=== PATIENT | male | born 1940 | race Two or more races ===

== ENCOUNTER 2018-08-21 10:07 | Inpatient (IN) | payer OTHER, MEDICAID ==
[2018-08-21] VITALS (12 sets, daily range): BP systolic 87–153; BP diastolic 44–104
[~2018-08-21] VITALS: Ht 167.6 cm; Wt 109.8 kg
--- NOTE | 2018-08-21 10:30 | NUR ---
PT BIB FAMILY FOR INCREASING SOB AND CONFUSION FOR PAST 2 WEEKS. NOTED SATING AT 60-70% RA. AT BS FOR EVAL. OTHER VSS. IV ACCESS STARTED. BLOOD DRAWN FOR LABS. SAFETY AND COMFORT MEASURES PROVIDED. WILL MONITOR.
[2018-08-21 10:44] LABS: BASOPHILS # (AUTO) 0.1 /CMM (0.0-0.2); BASOPHILS % (AUTO) 1.8 % (0.0-2.0); EOSINOPHILS % (AUTO) 0.5 % (0.0-6.0); HEMATOCRIT 53 % (39-51); LYMPHOCYTES # (AUTO) 1.1 /CMM (0.8-4.8); LYMPHOCYTES % (AUTO) 16.5 % (20.0-44.0); MEAN CORPUSCULAR HGB CONC 32 g/dl (31.0-36.0); MEAN CORPUSCULAR VOLUME 92 fL (80-96); MONOCYTES # (AUTO) 0.5 /CMM (0.1-1.30); MONOCYTES % (AUTO) 7.8 % (2.0-12.0); NEUTROPHILS # (AUTO) 5.2 /CMM (1.8-8.9); NEUTROPHILS % (AUTO) 73.4 % (43.0-81.0); PLATELET COUNT (AUTO) 136 /CMM (150-450); RDW COEFFICIENT OF VARIATION 13.2 (11.5-15.0); RED BLOOD CELL COUNT(AUTO) 5.77 MIL/uL (4.5-6.0); WHITE BLOOD COUNT (AUTO) 6.9 K/uL (4.3-11.0)
[2018-08-21] MEDS ORDERED: predniSONE 20 MG TABLET ONE (10:53)
[2018-08-21] MEDS ORDERED: IPRATROPIUM NEB FS 0.5 MG/2.5 ML AMPUL.NEB ONE (10:58)
[2018-08-21] MEDS ORDERED: ALBUTEROL FS 2.5 MG/3 ML VIAL.NEB ONE (10:58)
[2018-08-21] MEDS ORDERED: IPRATROPIUM NEB FS 0.5 MG/2.5 ML AMPUL.NEB NEB ONE (11:00)
[2018-08-21] MEDS ORDERED: predniSONE 20 MG TABLET PO ONE (11:00)
[2018-08-21] MEDS ORDERED: ALBUTEROL FS 2.5 MG/3 ML VIAL.NEB NEB ONE (11:00)
--- NOTE | 2018-08-21 11:00 | NUR ---
RT AT BS FOR BREATHING TX.
[2018-08-21 11:05] LABS: TROPONIN I 0.017 ng/mL (0.00-0.056)
[2018-08-21 11:06] LABS: B-TYPE NATRIURETIC PEPTIDE 644 PG/ML (0-125); CALCIUM, SERUM 8.4 mg/dL (8.5-10.1); CHLORIDE 98 mmol/L (98-107); GLUCOSE 201 mg/dL (74-106); SODIUM SERUM 136 mmol/L (136-145); UREA NITROGEN, BLOOD 8 mg/dL (7-18)
[2018-08-21 11:10] LABS: CARBON DIOXIDE 42 mmol/L (21-32)
--- NOTE | 2018-08-21 11:34 | NUR ---
CALLED TO ER. FOUND PT ON ROOM AIR SPO2: 70%. INITIATED HHN TX AND SPO2 WENT UP TO 99%. POST HHN TX PLACED PT ON 5L NC. PT SUSTAINED SPO2: 96%. INFORMED RN . Addendum: 08/21/18 at 1135 by RIKY CR RT Amended: Links added.
[2018-08-21] MEDS ORDERED: ACETAMINOPHEN 325 MG TABLET PO PRN (12:00)
[2018-08-21] MEDS ORDERED: ONDANSETRON HCL/PF 4 MG/2 ML VIAL IVP PRN (12:00)
[2018-08-21] MEDS ORDERED: SIMV20TA6 PO (12:08)
[2018-08-21] MEDS ORDERED: LISI10TA5 PO (12:08)
[2018-08-21] MEDS ORDERED: CHOL200026 PO (12:08)
[2018-08-21] MEDS ORDERED: ASPI-1152 PO (12:08)
[2018-08-21] MEDS ORDERED: PARO-64 PO (12:08)
--- NOTE | 2018-08-21 12:08 | NUR ---
DR. TUBBS AT BS FOR KRUNALAL.
--- NOTE | 2018-08-21 12:14 | NUR ---
REPORT GIVEN TO JOEL HOLLINS FOR TELE.
--- NOTE | 2018-08-21 13:00 | NUR ---
FRONT OFFICE MEDICAL ASSISTANT NOTES ADMITTED 78 YEAR OLD MALE, ARRIVED AT UNIT AT 1245 VIA GURNEY, REPORT RECEIVED FROM ISIS HOLLINS. PATIENT AWAKE, ALERT AND ORIENTED X4. VERBALLY RESPONSIVE AND RESPONDS TO VERBAL AND TACTILE STIMULI. BREATHING EVEN AND UNLABORED. NO SOB OR ACUTE DISTRESS, PATIENT ON OXYGEN AT 5L/MIN VIA NC. PATIENT ADMITTED UNDER MEDICAL SUPERVISION OF DR. TUBBS, AWARE OF PATIENT ARRIVAL AT UNIT. FAMILY AT BEDSIDE. PATIENT IV INTACT AND PATENT. NO SWELLING OR BLEEDING NOTED ON IV SITE. WILL CONTINUE TO MONITOR. BED LOCKED AND IN LOW POSITION. BILATERAL UPPER SIDE RAILS UP AND LOCKED. CALL LIGHT WITHIN EASY REACH
[2018-08-21] MEDS: LEVOFLOXACIN 750 MG /D5W 150ML 750 MG in PREMIX 1 EA IV SCH (13:23)
[2018-08-21] MEDS: methylPREDNISolone SOD SUCC 125 MG/2ML VIAL IV SCH ×2 (13:23→16:13)
[2018-08-21] MEDS: ALBUTEROL FS 2.5 MG/0.5 ML VIAL.NEB NEB SCH ×2 (14:24→19:44)
[2018-08-21] MEDS: IPRATROPIUM NEB FS 0.5 MG/2.5 ML AMPUL.NEB NEB SCH ×2 (14:24→19:44)
[2018-08-21 17:40] LABS: ABG OXYGEN SATURATION 88.4 % (92.0-98.5); ABG PCO2 87.3 mmHg (35.0-45.0); ABG PH 7.295 (7.350-7.450); ABG PO2 57.8 mmHg (75.0-100.0); AaDO2 68.2 mmHg; COHb 3.4 % (0.5-1.5); MetHb 0.5 % (0.0-1.5); SITE, ABG Left Radial; VENT MODE, BG Nasal Cannula
--- NOTE | 2018-08-21 18:45 | NUR ---
PRENATAL TEACHER NOTES RECEIVED ABG RESULTS AND RELAYED TO DR. TUBBS, WITH NEW ORDERS TO TRANSFER PATIENT TO ICU, TO START BIPAP AT 20/5. ORDER NOTED AND CARRIED OUT. PATIENT AND FAMILY AT BEDSIDE MADE AWARE AND VERBALIZED UNDERSTANDING. NURSING LICENSED PRACTICAL NURSE INSTRUCTOR MADE AWARE, PATIENT TO TRANSFER TO ICU ROOM 256-1. PLACED CALL TO ICU AND GAVE REPORT TO LARISA HOLLINS.
--- NOTE | 2018-08-21 19:05 | NUR ---
ICU/PROGRAM PROJECT ANALYST RECEIVED REPORT FROM CHARGE NURSE GÓMEZ, WHO HAD RECEIVED REPORT FROM 3 [place] NURSE EARLIER. PT APPEARS TO BE ALERT X4, NO SIGNS OF CONFUSION SEEN AT THIS TIME. PT WAS PLACED ON ICU MONITOR, NSR NOTED ON THE MONITOR. NO SKIN ISSUES SEEN. PT WAS PLACED ON 4 LITERS VIA N/C WITH SATURATION LOW 90'S, DUE TO HISTORY OF COPD. PT APPEARS COMFORTABLE, NO SIGNS OF DISTRESS SEEN. CALL LIGHT WITHIN REACH.
--- NOTE | 2018-08-21 19:35 | NUR ---
ICU/BRICK LOADER RT AT BEDSIDE, EVALUATED THE PT. SAID PT HAS LONG HISTORY OF COPD AND WILL WATCH HIM. AT THIS TIME THERE IS NO NEED TO PLACE PT ON BIPAP AT THIS TIME. CHARGE NURSE MADE AWARE OF THIS.
--- NOTE | 2018-08-21 20:20 | NUR ---
ICU/CELL TUBER HAND FAMILY AT BEDSIDE, EXPLAINED WHY PT WAS HERE AND PROVIDED ANY UPDATES AT WELL. GAVE FAMILY ICU NUMBER DIRECTLY.
--- NOTE | 2018-08-21 21:33 | NUR ---
PT IS AWAKE AND ALERT ON 5L NC. NO SOB. BIPAP S/B. WILL CONTINUE TO MONITOR.
--- NOTE | 2018-08-21 21:46 | NUR ---
PT PLACED ON VENTURI MASK 50%. PT SLEEPING, MOUTH BREATHNG. O2 SAT 88-90%. RN NOTIFIED. WILL CONTINUE TO MONITOR.
--- NOTE | 2018-08-21 21:56 | NUR ---
ICU/PRODUCTION EXPEDITER PT RECEIVED BREATHING TREATMENT, POST BREATHING TREATMENT PT WAS PLACED ON VENTURI MASK AT 15 LITERS WITH FIO2 50%. WILL CONTINUE TO MONITOR THIS PT.
[2018-08-22] VITALS (29 sets, daily range): BP systolic 74–141; BP diastolic 35–100
--- NOTE | 2018-08-22 00:25 | NUR ---
ICU/FIELD COORDINATOR PT APPEARS TO BE COMFORTABLE, NO ACUTE RESPIRATORY DISTRESS SEEN. CALL LIGHT WITHIN REACH. WILL CONTINUE TO MONITOR THIS PT.
[2018-08-22] MEDS: ALBUTEROL FS 2.5 MG/0.5 ML VIAL.NEB NEB SCH ×6 (00:56→23:34)
[2018-08-22] MEDS: IPRATROPIUM NEB FS 0.5 MG/2.5 ML AMPUL.NEB NEB SCH ×6 (00:56→23:34)
--- NOTE | 2018-08-22 03:10 | NUR ---
ICU/EMPLOYMENT SPECIALIST/PROGRAM MANAGER PT APPEARS COMFORTABLE WITH NO ACUTE DISTRESS SEEN. WILL CONTINUE TO MONITOR THIS PT.
[2018-08-22 04:38] LABS: LYMPHOCYTES # (AUTO) 0.4 /CMM (0.8-4.8); NEUTROPHILS # (AUTO) 7.1 /CMM (1.8-8.9); WHITE BLOOD COUNT (AUTO) 7.7 K/uL (4.3-11.0)
[2018-08-22 04:51] LABS: BASOPHILS % (AUTO) 0.1 % (0.0-2.0); HEMATOCRIT 49 % (39-51); LYMPHOCYTES % (AUTO) 5.5 % (20.0-44.0); MEAN CORPUSCULAR HGB CONC 33 g/dl (31.0-36.0); MEAN CORPUSCULAR VOLUME 94 fL (80-96); MONOCYTES # (AUTO) 0.2 /CMM (0.1-1.30); MONOCYTES % (AUTO) 2.2 % (2.0-12.0); NEUTROPHILS % (AUTO) 92.2 % (43.0-81.0); PLATELET COUNT (AUTO) 123 /CMM (150-450); RDW COEFFICIENT OF VARIATION 13.9 (11.5-15.0); RED BLOOD CELL COUNT(AUTO) 5.24 MIL/uL (4.5-6.0)
[2018-08-22 04:54] LABS: ALANINE AMINOTRANSFERASE 16 U/L (12-78); ALBUMIN 2.7 g/dL (3.4-5.0); ALKALINE PHOSPHATASE 76 U/L (46-116); ASPARTATE AMINOTRANSFERASE 10 U/L (15-37); BILIRUBIN,TOTAL 0.3 mg/dL (0.2-1.0); CALCIUM, SERUM 8.4 mg/dL (8.5-10.1); CARBON DIOXIDE 38 mmol/L (21-32); CHLORIDE 100 mmol/L (98-107); GLUCOSE 261 mg/dL (74-106); POTASSIUM 5.2 mmol/L (3.5-5.1); SODIUM SERUM 139 mmol/L (136-145); TOTAL PROTEIN, SERUM 6.3 g/dL (6.4-8.2); UREA NITROGEN, BLOOD 14 mg/dL (7-18)
--- NOTE | 2018-08-22 05:50 | NUR ---
ICU/RN WOUND CARE PT BECAME CONFUSED, PULLED OUT IV. PT WAS CLEANED UP AND IV REPLACED WITH 20G HL TO LEFT HEPLOCK. CALL LIGHT WITHIN REACH.
--- NOTE | 2018-08-22 07:10 | NUR ---
RECEIVED PATIENT RESTING A/OX2-3. INCREASED CONFUSION NOTED PER NIGHT RN WHEN PATIENT TAKES OXYGEN OFF. TOLERATING VENTURI MASK 15LPM AND 50% AT THIS TIME O2 SAT 92%. TELE NSR. IV C/D/I/P SALINE LOCKED. PATIENT APPEARS STABLE AT THIS TIME. VS STABLE. SAFETY, SKIN, ASPIRATION PRECAUTIONS IN PLACE AND WILL MONITOR
[2018-08-22] MEDS: methylPREDNISolone SOD SUCC 125 MG/2ML VIAL IV SCH ×3 (08:03→17:21)
--- NOTE | 2018-08-22 08:44 | NUR ---
AT THIS TIME PATIENT PLACED ON 5LPM NC TOLERATING WELL 88% WILL MONITOR
--- NOTE | 2018-08-22 09:00 | NUR ---
ABG TAKEN DR WOODRUFF NOTIFIED. HE WILL SEE PATIENT. NO NEW ORDERS AT THIS TIME. PATIENT SITTING AT EOB NO ACUTE DISTRESS NOTED HOWEVER IS SOB WITH ACTIVITY
[2018-08-22 09:13] LABS: ABG BASE EXCESS 8.7 mmol/L; ABG OXYGEN SATURATION 85.5 % (92.0-98.5); ABG PCO2 83.4 mmHg (35.0-45.0); ABG PH 7.294 (7.350-7.450); ABG PO2 53.4 mmHg (75.0-100.0); AaDO2 172.6 mmHg; COHb 1.7 % (0.5-1.5); MetHb 0.5 % (0.0-1.5); O2Hb 83.6 % (94.0-97.0); SITE, ABG Right Radial; VENT MODE, BG 5L NASAL CANULA
--- NOTE | 2018-08-22 09:25 | NUR ---
PER DR WOODRUFF PLACE PATIENT ON BIPAP IF HE TOLERATES IT 13/04
[2018-08-22] MEDS: NICOTINE PATCH (21MG) 21 MG PATCH.TD24 TD SCH (11:21)
[2018-08-22] MEDS: LEVOFLOXACIN 750 MG /D5W 150ML 750 MG in PREMIX 1 EA IV SCH (12:35)
--- NOTE | 2018-08-22 14:00 | NUR ---
PATIENT BIPAP REMOVED FOR EATING. TOLERATING WELL SATURATION ON 5LPM NC 91% NO NOTED SOB DIFFCULTY BREATHING AT THIS TIME.
--- NOTE | 2018-08-22 18:32 | NUR ---
ALL DUE MEDS GIVEN AND ALL NEEDS MET. PATIENT TOLEARTING NASAL CANNULA AT THIS TIME 88-91% ON 5LPM. TELE NSR. SAFETY, SKIN, ASPIRATION PRECAUTIONS MONITORED THROUGHOUT DAY. CARE WILL BE ENDORSED TO RN FOR DARRYL.
--- NOTE | 2018-08-22 19:15 | NUR ---
ICU/DIRECTOR HRIS RECEIVED REPORT FROM DAY NURSE. PT APPEARS TO BE ALERT X4, NO SIGNS OF CONFUSION SEEN AT THIS TIME. PT'S FAMILY AT BEDSIDE, WITH ENGAGING CONVERSATION WITH PT. PT IS ON ICU MONITOR, NSR NOTE. NO SKIN ISSUES SEEN, AT THIS TIME WITH PT ABLE TO TURN AND REPOSITION SELF. PT IS ON 4 LITERS VIA N/C WITH SATURATION LOW 90'S AND HIGH 80'S, DUE TO HISTORY OF COPD. PT APPEARS COMFORTABLE, NO SIGNS OF ACUTE DISTRESS SEEN. CALL LIGHT WITHIN REACH.
--- NOTE | 2018-08-22 20:35 | NUR ---
RECEIVED PT ON 5L NC AWAKE AND ALERT. O2 SAT 90-91%. PT IS RECEIVING Q6 BREATHING TX. BS DM BILAT. WILL CONTINUE TO MONITOR. BIPAP AT [facility].
--- NOTE | 2018-08-22 21:15 | NUR ---
ICU/MAINTENANCE OPERATOR PT'S DAUGHTER AT BEDSIDE, GAVE SMALL UPDATE ON PT'S STATUS. ANSWERED ALL QUESTIONS PRESENTED AT THE TIME OF CONVERSATION. FAMILY STAYED FOR 15-20 MINUTES, DUE TO PT FALLING ASLEEP.
--- NOTE | 2018-08-22 22:10 | NUR ---
ICU/BOTTLE HOP PT PLACED ON PM BIPAP FOR THE NIGHT. SETTINGS ON THE BIPAP IS 15/5, RATE 14, FIO2 60%. CALL LIGHT WITHIN REACH WILL CONTINUE TO MONITOR THIS PT.
--- NOTE | 2018-08-22 22:21 | NUR ---
PT PLACED ON BIPAP. RN NOTIFIED. WILL CONTINUE TO MONITOR. Addendum: 08/22/18 at 2222 by EMILIANA ALVAREZ RT Amended: Links added.
--- NOTE | 2018-08-22 23:41 | NUR ---
PT NOT COMFORTABLE WITH THE MASK. CHANGED MASK TO UTN MASK LARGE. PT SAID A LOT BETTER. RN NOTIFIED. Addendum: 08/22/18 at 2343 by EMILIANA ALVAREZ RT Amended: Links added.
[2018-08-23] VITALS (25 sets, daily range): BP systolic 105–140; BP diastolic 33–84
--- NOTE | 2018-08-23 00:20 | NUR ---
ICU/NEON GLASS BLOWER PT'S FIO2 WAS DECREASED DOWN TO 50 FROM 60%. ALSO CHANGED THE PARTIAL MASK TO SMALLER MASK TO FIT AROUND NOSE. PT APPEARS TO BE RESTING COMFORTABLE NO ACUTE DISTRESS, CALL LIGHT WITHIN REACH.
--- NOTE | 2018-08-23 02:30 | NUR ---
ICU/DRILL SHARPENER RT INCREASED THE FIO2 TO 60 FROM 50%. WILL CONTINUE TO MONITOR PT'S SATURATION. PT APPEARS COMFORTABLE WITH CALL LIGHT WITHIN REACH.
[2018-08-23] MEDS: ALBUTEROL FS 2.5 MG/0.5 ML VIAL.NEB NEB SCH ×5 (03:18→20:20)
[2018-08-23] MEDS: IPRATROPIUM NEB FS 0.5 MG/2.5 ML AMPUL.NEB NEB SCH ×5 (03:18→20:20)
[2018-08-23] MEDS: methylPREDNISolone SOD SUCC 125 MG/2ML VIAL IV SCH ×3 (09:05→16:34)
[2018-08-23] MEDS: NICOTINE PATCH (21MG) 21 MG PATCH.TD24 TD SCH (09:05)
[2018-08-23 10:08] LABS: ABG BASE EXCESS 6.5 mmol/L; ABG OXYGEN SATURATION 90.3 % (92.0-98.5); ABG PCO2 60.6 mmHg (35.0-45.0); ABG PO2 57.8 mmHg (75.0-100.0); AaDO2 157.7 mmHg; COHb 0.7 % (0.5-1.5); MetHb 0.8 % (0.0-1.5); O2Hb 88.9 % (94.0-97.0); PEEP,BG 5 cm H2O; SITE, ABG Right Radial; VENT MODE, BG NASAL CANNULA
[2018-08-23] MEDS: LEVOFLOXACIN 750 MG /D5W 150ML 750 MG in PREMIX 1 EA IV SCH (14:14)
--- NOTE | 2018-08-23 19:30 | NUR ---
[facility] RN INITIAL NOTE RECEIVED PATIENT AWAKE A/OX3, ABLE TO MAKE NEEDS KNOWN. FAMILY AT BEDSIDE. DENIES PAIN OR DISCOMFORT. DENIES SOB. RESPIRATIONS EVEN UNLABORED ON 3.5LPMO2 VIA NC. SKIN WARM AND DRY TOUCH. ON TELE MONITOR SR. SIDE RAILS UP AND LOCKED. BED KEPT AT LOWEST POSITION. CALL LIGHT KEPT WITHIN EASY REACH. WILL CONTINUE TO MONITOR.
[2018-08-24] VITALS: BP 112/46
--- NOTE | 2018-08-24 | NUR ---
[facility] RN NOTE RT AT BEDSIDE, BIPAP PLACED ON
[2018-08-24] MEDS: IPRATROPIUM NEB FS 0.5 MG/2.5 ML AMPUL.NEB NEB SCH ×6 (00:15→20:05)
[2018-08-24] MEDS: ALBUTEROL FS 2.5 MG/0.5 ML VIAL.NEB NEB SCH ×6 (00:15→20:05)
[2018-08-24 04:00] VITALS: BP 116/71
--- NOTE | 2018-08-24 07:10 | NUR ---
[facility] RN OPENING NOTE RECEIVED PATIENT RESTING IN BED IN STABLE CONDITION, SERBIAN SPEAKING. NO RESPIRATORY DISTRESS NOTED. IV SITE ON LEFT FOREARM INTACT SALINE LOCK. SINUS RHYTHM WITH BBB AND HEART RATE OF HIGH 90S ON THE NEW AUTOS DELIVERY DRIVER. BED LOW AND LOCKED, HEAD OF BED ELEVATED, CALL LIGHT WITHIN REACH, WILL CONTINUE TO MONITOR.
--- NOTE | 2018-08-24 07:27 | NUR ---
[facility] RN CLOSING NOTE NO SIGNIFICANT CHANGES OVERNIGHT. NO C/O PAIN OR DISCOMFORT. NO C/O SOB. ON 3.5LPMO2 VIA NC. SKIN WARM AND DRY TO TOUCH. ALL NEEDS ANTICIPATED AND MET. SIDE RAILS UP AND LOCKED. BED KEPT AT LOWEST POSITION. CALL LIGHT KEPT WITHIN EASY REACH. CONTINUITY OF CARE ENDORSED TO AM NURSE.
[2018-08-24 08:00] VITALS: BP 138/81
[2018-08-24] MEDS: methylPREDNISolone SOD SUCC 125 MG/2ML VIAL IV SCH ×2 (08:41→13:22)
[2018-08-24] MEDS: NICOTINE PATCH (21MG) 21 MG PATCH.TD24 TD SCH (08:43)
[2018-08-24 12:00] VITALS: BP 116/65
[2018-08-24] MEDS: LEVOFLOXACIN (750 MG) 750 MG TABLET PO SCH (13:22)
[2018-08-24 16:00] VITALS: BP 119/65
--- NOTE | 2018-08-24 18:28 | NUR ---
[facility] RN CLOSING NOTE PATIENT RESTING IN BED IN STABLE CONDITION, NO RESPIRATORY DISTRESS NOTED. ABLE TO MAKE NEEDS KNOWN. SINUS RHYTHM WITH A HEART RATE OF 100 AND BBB ON CLOTH BLEACHING RANGE TENDER. IV SITE ON LEFT FOREARM INTACT SALINE LOCK. HEAD OF BED ELEVATED, BED LOW AND LOCKED, CALL LIGHT WITHIN REACH, WILL ENDORSE TO ONCOMING NURSE FOR CONTINUITY OF CARE.
--- NOTE | 2018-08-24 19:30 | NUR ---
RN NOTES RECEIVED PT AWAKE FAMILY AT BEDSIDE. PT IS AOX4, SMILING. NO RESPIRATORY DISTRESS IN ROOM AIR SATURATION 90%. ST ON TELE MONITOR WITH BBB. AFEBRILE. INSTRUCTION PROVIDED TO USED CALL LIGHT FOR ASSISTANCE, DAUGHTER EXPLAINED IN ITALIAN LANGUAGE. AND VERBALIZED UNDERSTANDING. IV SITE ON LFA G 20 SL ,FLUSHED WELL INTACT AND PATENT. PT. IS CLEAN AND DRY. WILL CONTINUE TO MONITOR.
[2018-08-24 20:00] VITALS: BP 130/71
--- NOTE | 2018-08-24 22:10 | NUR ---
RN NOTES RT CAME TO PLACED BIPAP BUT PATIENT REFUSED. RISK AND BENEFITS EXPLAINED VERBALIZED UNDERSTANDING, PER PATIENT HE FEELS FINE.
[2018-08-25] VITALS: BP_SYST 126; BP_SYST 141; BP_DIAS 69; BP_DIAS 76
[2018-08-25] MEDS: IPRATROPIUM NEB FS 0.5 MG/2.5 ML AMPUL.NEB NEB SCH ×7 (00:10→22:42)
[2018-08-25] MEDS: ALBUTEROL FS 2.5 MG/0.5 ML VIAL.NEB NEB SCH ×7 (00:10→22:42)
[2018-08-25 04:00] VITALS: BP 128/56
--- NOTE | 2018-08-25 05:54 | NUR ---
RN NOTES PT ASLEEP WELL ON BED. DESATURATING <88% WITHOUT O2. KEPT O2 3LPM VIA NC. NSR W/ BBB ON TELE MONITOR. BREATHING TX. GIVEN ORDERED. BIPAP REFUSED AT NIGHT. REMINDED NOT TO REMOVE O2. SATURATION 96% WITH O2. AFEBRILE. VSS. NO SIGNIFICANT CHANGES NOTED. INDEPENDENT W/ ACTIVITIES. IV SITE INTACT AND PATENT. PT IS CLEAN AND DRY. WILL ENDORSED CONTINUITY OF CARE TO AM NURSE.
[2018-08-25 06:31] LABS: HEMATOCRIT 52 % (39-51); HEMOGLOBIN 16.5 g/dL (13.5-17.5); LYMPHOCYTES # (AUTO) 0.7 /CMM (0.8-4.8); LYMPHOCYTES % (AUTO) 5.2 % (20.0-44.0); MEAN CORPUSCULAR HGB CONC 32 g/dl (31.0-36.0); MEAN CORPUSCULAR VOLUME 94 fL (80-96); MONOCYTES # (AUTO) 0.8 /CMM (0.1-1.30); MONOCYTES % (AUTO) 6.5 % (2.0-12.0); NEUTROPHILS # (AUTO) 11.2 /CMM (1.8-8.9); NEUTROPHILS % (AUTO) 88.3 % (43.0-81.0); PLATELET COUNT (AUTO) 153 /CMM (150-450); RDW COEFFICIENT OF VARIATION 14.7 (11.5-15.0); RED BLOOD CELL COUNT(AUTO) 5.51 MIL/uL (4.5-6.0); WHITE BLOOD COUNT (AUTO) 12.7 K/uL (4.3-11.0)
[2018-08-25 07:08] LABS: CHOLESTEROL 121 mg/dL (<200); HDL CHOLESTEROL 47 mg/dL (40-60); LDL 67 mg/dL (0-99); TRIGLYCERIDES 91 mg/dL (30-150)
[2018-08-25 07:13] LABS: CALCIUM, SERUM 8.8 mg/dL (8.5-10.1); CARBON DIOXIDE 39 mmol/L (21-32); CHLORIDE 100 mmol/L (98-107); CREATININE 1.1 mg/dL (0.6-1.3); GLUCOSE 329 mg/dL (74-106); MAGNESIUM 2.4 mg/dL (1.8-2.4); PHOSPHORUS 3.8 mg/dL (2.5-4.9); POTASSIUM 4.2 mmol/L (3.5-5.1); SODIUM SERUM 143 mmol/L (136-145); UREA NITROGEN, BLOOD 21 mg/dL (7-18)
--- NOTE | 2018-08-25 07:35 | NUR ---
RN NOTE PATIENT IS AWAKE ALERT ORIENTED X 4, HE IS ABLE TO MAKE THINGS KNOWN AND VERBALIZE NEEDS IN HIS [place] LANGUAGE. BREATHING EVEN AND UNLABORED WITH NO DISTRESS NOTED. PATIENT DENIES ANY PAIN AT THIS TIME. ON CONTINUOUS O2 OF 4L SATURATING WELL. ON CRYPTOLOGIC SUPPORT SPECIALIST OF SINUS RHYTHM HR OF 86. IV SITE INTACT AND PATENT. ALL SAFETY MEASURES DONE. BED LOW AND LOCKED POSITION. PLACED CALL LIGHT WITHIN REACH. WILL CONTINUE TO MONITOR.
[2018-08-25 08:00] VITALS: BP 143/86
[2018-08-25] MEDS: NICOTINE PATCH (21MG) 21 MG PATCH.TD24 TD SCH (08:07)
[2018-08-25] MEDS ORDERED: methylPREDNISolone SOD SUCC 125 MG/2ML VIAL IV SCH (09:00)
[2018-08-25 12:00] VITALS: BP 137/72
[2018-08-25] MEDS: LEVOFLOXACIN (750 MG) 750 MG TABLET PO SCH (12:27)
--- NOTE | 2018-08-25 13:20 | NUR ---
RN NOTE PATIENT DESATURATION TO ROOM AIR. PATIENTS O2 SATURATION LEVEL TO ROOM AIR IS 86-88%. PATIENT NEEDS O2, WITH O2 3-4L VIA NASAL CANULA PATIENTS SATURATION IS 90-93%%
[2018-08-25 16:00] VITALS: BP 151/90
--- NOTE | 2018-08-25 19:06 | NUR ---
RN NOTE PATIENT REMAINED STABLE THROUGHOUT SHIFT. NO ACUTE CHANGES OR DISTRESS NOTED. WILL ENDORSE TO NEXT SHIFT TO CONTINUE TO MONITOR CONTINUITY OF CARE.
[2018-08-25 20:00] VITALS: BP 140/78
--- NOTE | 2018-08-25 21:00 | NUR ---
RT NOTE: PT PUT ON BIPAP AT THIS TIME. MEPILEX PLACED ON NOSE. PT SP02 TO BE BETWEEN 88-92% PER MD ORDERS. FI02 SET AT 30% ON BIPAP. WILL CONT TO MONITOR PT. Addendum: 08/26/18 at 0115 by JOSÉ LUIS SIMONS RT Amended: Links added.
[2018-08-26] VITALS: BP 141/76
[2018-08-26] MEDS: IPRATROPIUM NEB FS 0.5 MG/2.5 ML AMPUL.NEB NEB SCH ×4 (03:01→15:30)
[2018-08-26] MEDS: ALBUTEROL FS 2.5 MG/0.5 ML VIAL.NEB NEB SCH ×4 (03:01→15:30)
[2018-08-26 04:00] VITALS: BP 146/86
--- NOTE | 2018-08-26 07:10 | NUR ---
KIER TENDER INITIAL NOTES RECEIVED PT IN BED AWAKE. A/OX3. PT EXPRESSING: "i WANT TO GO HOME". NO C/O PAIN. LUNG SOUNDS CLEAR TO AUSCULTATION. NOT IN RESP DISTRESS. PT IS ON ROOM AIR. REFUSING O2 AT THIS TIME. SR ON TELE. LFA IV SITE NO S/SX OF INFECTION. BOWEL SOUNDS ACTIVE. SAFETY PRECAUTIONS IN PLACE. WILL CONT TO MONITOR.
[2018-08-26 08:00] VITALS: BP 132/88
[2018-08-26] MEDS ORDERED: predniSONE 10 MG TABLET PO SCH (09:00)
[2018-08-26] MEDS: NICOTINE PATCH (21MG) 21 MG PATCH.TD24 TD SCH (09:03)
[2018-08-26 09:50] LABS: ABG BASE EXCESS 11.9 mmol/L; ABG OXYGEN SATURATION 88.5 % (92.0-98.5); ABG PCO2 67.2 mmHg (35.0-45.0); ABG PH 7.402 (7.350-7.450); ABG PO2 55.7 mmHg (75.0-100.0); AaDO2 64.6 mmHg; COHb 0.2 % (0.5-1.5); MetHb 0.6 % (0.0-1.5); O2Hb 87.8 % (94.0-97.0); SITE, ABG Left Radial; VENT MODE, BG 2LNC
[2018-08-26 12:00] VITALS: BP 130/76
[2018-08-26] MEDS: LEVOFLOXACIN (750 MG) 750 MG TABLET PO SCH (12:08)
--- NOTE | 2018-08-26 16:40 | NUR ---
SUPERVISOR ROAD ADMINISTRATOR D/C NOTES EXPLAINED TO PT DISCHARGE INSTRUCTIONS, WORSENING SX, PRESCRIPTIONS, ANSWERED ALL QUESTIONS. COPY OF RECORDS GIVEN TO PATIENT. REMOVED IV NO S/SX OF INFECTION, TELE BOX REMOVED. PT LEFT WITH O2 ACCOMPANIED BY NURSEGREGORY. HOME WITH DAUGHTER. ALL NEEDS ATTENDED.
== END 2018-08-26 16:40 | disposition home or self-care (01) | DRG 189 ==
LOC: ER 10:09 → TELE 12:20 → ICU 18:46 → TELE-TD 08-23 18:23 → TELE1 08-25 08:45
PROVIDERS: ADMIT Internal Medicine; ATTEND Internal Medicine
PROC: 5A09357 Assistance with Respiratory Ventilation, Less than 24 Consecutive Hours, Continuous Positive Airway Pressure (ICD-10-PCS; principal; 2018-08-22)
DX: J96.21 Acute and chronic respiratory failure with hypoxia (principal); J44.1 Chronic obstructive pulmonary disease with (acute) exacerbation; I50.32 Chronic diastolic (congestive) heart failure; E66.2 Morbid (severe) obesity with alveolar hypoventilation; J96.22 Acute and chronic respiratory failure with hypercapnia; I11.0 Hypertensive heart disease with heart failure; I25.10 Atherosclerotic heart disease of native coronary artery without angina pectoris; F17.210 Nicotine dependence, cigarettes, uncomplicated; R73.03 Prediabetes; E78.5 Hyperlipidemia, unspecified; Z68.39 Body mass index [BMI] 39.0-39.9, adult
CPT/HCPCS: 36415; 36600; 71045-TC; 80048-TC; 80053-TC; 80061-TC; 82803-TC; 83735-TC; 83880; 84100-TC; 84484-TC; 85025-TC; 87081-TC; 94660; 94760-TC; 94799-TC; A4216; A4606; A6402; J1956; J2930; J7030; J7050; Z7610

== ENCOUNTER → 2018-12-06 | Outpatient (CLI) | payer MEDICARE, MEDICAID ==
[~2018-12-06] MED LIST: ASPI-1152 PO; CHOL200026 PO; LISI10TA5 PO; PARO-64 PO; SIMV20TA6 PO
[2018-12-06 14:11] VITALS: BP 119/71
== END | disposition home or self-care (01) ==
LOC: MSC 12-06 13:30
PROVIDERS: ATTEND Nurse Practitioner Acute Care
DX: R05 Cough (principal); R09.89 Other specified symptoms and signs involving the circulatory and respiratory systems; I10 Essential (primary) hypertension; E78.5 Hyperlipidemia, unspecified; F32.9 Major depressive disorder, single episode, unspecified; G47.33 Obstructive sleep apnea (adult) (pediatric); E66.9 Obesity, unspecified; Z71.3 Dietary counseling and surveillance; F17.200 Nicotine dependence, unspecified, uncomplicated; Z99.89 Dependence on other enabling machines and devices
CPT/HCPCS: 71046; G0463; Z7610

== ENCOUNTER 2018-12-29 11:38 | Outpatient (CLI) | payer MEDICARE, MEDICAID ==
[2018-12-29 12:10] LABS: ABG BASE EXCESS 3.7 mmol/L; ABG OXYGEN SATURATION 91.5 % (92.0-98.5); ABG PCO2 54.8 mmHg (35.0-45.0); ABG PH 7.371 (7.350-7.450); ABG PO2 57.4 mmHg (75.0-100.0); AaDO2 26.7 mmHg; COHb 5.7 % (0.5-1.5); MetHb 0.2 % (0.0-1.5); O2Hb 86.1 % (94.0-97.0); SITE, ABG Right Radial; VENT MODE, BG ROOM AIR
== END 2018-12-29 23:59 | disposition home or self-care (01) ==
LOC: RT 11:38
PROVIDERS: ATTEND Internal Medicine Pulmonary Disease
DX: R06.02 Shortness of breath (principal)
CPT/HCPCS: 36600; 82803-TC

== ENCOUNTER 2019-01-11 14:03 | Outpatient (CLI) | payer MEDICARE, MEDICAID ==
[2019-01-11 14:22] VITALS: BP 149/94
== END 2019-01-11 23:59 | disposition home or self-care (01) ==
LOC: MSC 14:03
PROVIDERS: ATTEND Nurse Practitioner Acute Care
DX: Z51.89 Encounter for other specified aftercare (principal); J44.9 Chronic obstructive pulmonary disease, unspecified; F17.200 Nicotine dependence, unspecified, uncomplicated; Z79.51 Long term (current) use of inhaled steroids; I10 Essential (primary) hypertension; E78.5 Hyperlipidemia, unspecified; F41.8 Other specified anxiety disorders; G47.33 Obstructive sleep apnea (adult) (pediatric); Z99.89 Dependence on other enabling machines and devices; Z99.81 Dependence on supplemental oxygen
CPT/HCPCS: 82962-TC

== ENCOUNTER 2019-01-27 12:32 | Inpatient (IN) | payer MEDICARE, MEDICAID ==
[~2019-01-27] VITALS: Ht 182.9 cm; Wt 105.2 kg
[2019-01-27] VITALS (12 sets, daily range): BP systolic 112–154; BP diastolic 60–98
--- NOTE | 2019-01-27 12:32 | NUR ---
PT BIB DAUGHTER FOR INCREASING SOB AND GEN WEAKNESS; PT AAOX3-4, FIJIAN SPEAKING, PT ON MONITOR, NAD NOTED, AT BEDSIDE FOR EVAL
[2019-01-27] MEDS ORDERED: methylPREDNISolone SOD SUCC 125 MG/2ML VIAL IV ONE (13:30)
[2019-01-27] MEDS ORDERED: IPRATROPIUM NEB FS 0.5 MG/2.5 ML AMPUL.NEB NEB ONE (13:30)
[2019-01-27] MEDS ORDERED: ALBUTEROL FS 2.5 MG/3 ML VIAL.NEB NEB ONE (13:30)
[2019-01-27 13:38] LABS: BASOPHILS % (AUTO) 0.7 % (0.0-2.0); EOSINOPHILS % (AUTO) 0.1 % (0.0-6.0); HEMATOCRIT 58 % (39-51); HEMOGLOBIN 18.8 g/dL (13.5-17.5); LYMPHOCYTES # (AUTO) 0.9 /CMM (0.8-4.8); LYMPHOCYTES % (AUTO) 19.3 % (20.0-44.0); MEAN CORPUSCULAR HGB CONC 32 g/dl (31.0-36.0); MEAN CORPUSCULAR VOLUME 95 fL (80-96); MONOCYTES # (AUTO) 0.6 /CMM (0.1-1.30); MONOCYTES % (AUTO) 14.2 % (2.0-12.0); NEUTROPHILS # (AUTO) 2.9 /CMM (1.8-8.9); NEUTROPHILS % (AUTO) 65.7 % (43.0-81.0); PLATELET COUNT (AUTO) 131 /CMM (150-450); RED BLOOD CELL COUNT(AUTO) 6.13 MIL/uL (4.5-6.0); WHITE BLOOD COUNT (AUTO) 4.4 K/uL (4.3-11.0)
[2019-01-27] MEDS ORDERED: IPRATROPIUM NEB FS 0.5 MG/2.5 ML AMPUL.NEB ONE (13:40)
[2019-01-27] MEDS ORDERED: ALBUTEROL FS 2.5 MG/3 ML VIAL.NEB ONE (13:40)
[2019-01-27] MEDS ORDERED: methylPREDNISolone SOD SUCC 125 MG/2ML VIAL ONE (13:47)
[2019-01-27 13:54] LABS: CALCIUM, SERUM 8.9 mg/dL (8.5-10.1); CARBON DIOXIDE 36 mmol/L (21-32); CHLORIDE 98 mmol/L (98-107); GLUCOSE 310 mg/dL (74-106); POTASSIUM 4.4 mmol/L (3.5-5.1); SODIUM SERUM 139 mmol/L (136-145); UREA NITROGEN, BLOOD 9 mg/dL (7-18)
[2019-01-27 14:09] LABS: ALANINE AMINOTRANSFERASE 24 U/L (12-78); ALBUMIN 3.2 g/dL (3.4-5.0); ALKALINE PHOSPHATASE 94 U/L (46-116); ASPARTATE AMINOTRANSFERASE 21 U/L (15-37); B-TYPE NATRIURETIC PEPTIDE 634 PG/ML (0-125); BILIRUBIN,DIRECT 0.1 mg/dL (0.0-0.2); BILIRUBIN,TOTAL 0.5 mg/dL (0.2-1.0)
--- NOTE | 2019-01-27 14:21 | NUR ---
PER PT'S SOFTBALL WINDER; DR WOODRUFF, PT'S BASELINE O2 IS 84-86%
[2019-01-27 14:33] LABS: BAND % (MANUAL) 4 % (0.0-5.0); LYMPHOCYTES % (MANUAL) 30 % (16-48); MONOCYTES % (MANUAL) 15 % (0-11.0); NEUTROPHILS % (MANUAL) 51 (42-76)
[2019-01-27 15:08] LABS: ABG BASE EXCESS 7.6 mmol/L; ABG OXYGEN SATURATION 82.2 % (92.0-98.5); ABG PCO2 101.9 mmHg (35.0-45.0); ABG PH 7.228 (7.350-7.450); ABG PO2 51.1 mmHg (75.0-100.0); AaDO2 28.3 mmHg; COHb 3.6 % (0.5-1.5); MetHb 0.3 % (0.0-1.5); SITE, ABG Right Radial; VENT MODE, BG nasal cannula
--- NOTE | 2019-01-27 15:29 | NUR ---
RT PT PLACED ON BIPAP PER ER MD. SETTINGS GIVEN BY MD. ALARMS CHECKED AND AUDIBLE. BIPAP PLUGGED IN RED OUTLET. AMBU BAG NOTED HOB. WILL CONTINUE TO MONITOR T/O SHIFT.
--- NOTE | 2019-01-27 16:37 | NUR ---
ICU 257
--- NOTE | 2019-01-27 17:39 | NUR ---
GIVEN REPORT TO AFSATU RN FOR DARRYL; PT WILL BE TRANSPORTED TO ICU VIA ACLS PROTOCOL
--- NOTE | 2019-01-27 17:40 | NUR ---
PATIENT SERVICES CLERK ADMITTING NOTES RECEIVED PT FROM ER NURSE ON BIPAP. PT ADMITTED FOR RESPIRATORY ACIDOSIS AND COPD EXACERBATION. PT LETHARGIC, DANISH SPEAKING, RESPONSIVE TO TACTIC STIMULI. BIPAP SETTINGS (20/5 RATE 18, FIO2 50%). PT SATING WELL AT 98%. VSS AT THIS TIME. PT CURRENTLY SR ON THE TELE MONITOR.. BELONGINGS VERIFIED. IVS NOTED TO RIGHT AC AND RIGHT HAND. IVS NOTED TO BE C/D/I. NO REDNESS OR SIGNS OF INFILTRATION NOTED. BED IN LOW LOCKED POSITION, SIDE RAILS UP X3, CALL LIGHT WITHIN REACH. DR. HOOD MADE AWARE OF ADMISSION. WILL BEING ADMISSION PROCESS AND AWAIT FOR FURTHER MD ORDERS.
--- NOTE | 2019-01-27 18:51 | NUR ---
DEVELOPMENTAL TRAINING COUNSELOR CLOSING NOTES PT REMAINS STABLE SINCE ADMISSION. ADMITTING ORDERS ACKNOWLEDGED. PTS' FAMILY AT BEDSIDE. WILL ENDORSE TO NIGHTSHIFT RN FOR DARRYL
[2019-01-27] MEDS ORDERED: MAGNESIUM HYDROXIDE 30 ML UDC PO PRN (19:00)
[2019-01-27] MEDS ORDERED: HYDROCODONE/APAP 5/325MG 1 EACH TABLET PO PRN (19:00)
[2019-01-27] MEDS ORDERED: ACETAMINOPHEN 325 MG TABLET PO PRN (19:00)
[2019-01-27] MEDS ORDERED: Z GUARD REMEDY 2 OZ OINT TP PRN (19:00)
[2019-01-27] MEDS ORDERED: ONDANSETRON HCL/PF 4 MG/2 ML VIAL IVP PRN (19:00)
[2019-01-27] MEDS ORDERED: IPRATROPIUM NEB FS 0.5 MG/2.5 ML AMPUL.NEB NEB PRN (19:00)
[2019-01-27] MEDS ORDERED: MAG HYDROX/AL HYDROX/SIMETH 30 ML UDC PO PRN (19:00)
[2019-01-27] MEDS ORDERED: ZOLPIDEM TARTRATE 5 MG TABLET PO PRN (19:00)
[2019-01-27] MEDS ORDERED: ALBUTEROL FS 2.5 MG/0.5 ML VIAL.NEB NEB PRN (19:00)
--- NOTE | 2019-01-27 19:00 | NUR ---
RECEIVED PT IN NO ACUTE DISTRESS IN BED. PT IS A/O X 1 WITH PERIODS OF CONFUSION. PT IS IVORIAN SPEAKING ONLY. PT IS ON TELE WITH SR-ST ON THE MONITOR. PT NOT C/O ANY SOB, DIFFICULTY BREATHING OR PAIN AT THIS TIME. PT IS ON BIPAP WITH SETTING @ 20/5, RATE 18, FIO2 50% AND TOLERATING WELL WITH O2 SAT @ 94%. PT HAS RFA 20G THAT IS CLEAN DRY INTACT AND PATENT WITH SALINE LOCK. PT HAS RIGHT HAND 20G THAT IS CLEAN DRY INTACT AND PATENT WITH SALINE LOCK. BED IN LOW LOCK POSITION WITH RAILS UP X 2. CALL LIGHT WITHIN REACH AND ALL SAFETY MEASURES ENSURED AND CARRIED OUT. WILL CONTINUE TO MONITOR.
[2019-01-27] MEDS: SIMVASTATIN 20 MG TABLET PO SCH (22:00)
[2019-01-27] MEDS: ENOXAPARIN SODIUM 40 MG/0.4 ML DISP.SYRIN SQ SCH (22:08)
[2019-01-28] VITALS (31 sets, daily range): BP systolic 103–146; BP diastolic 35–93
[2019-01-28] MEDS: methylPREDNISolone SOD SUCC 40 MG/ML VIAL IV SCH ×5 (00:14→23:47)
[2019-01-28 04:51] LABS: BASOPHILS % (AUTO) 0.3 % (0.0-2.0); HEMATOCRIT 58 % (39-51); HEMOGLOBIN 18.7 g/dL (13.5-17.5); LYMPHOCYTES # (AUTO) 0.4 /CMM (0.8-4.8); LYMPHOCYTES % (AUTO) 9.6 % (20.0-44.0); MEAN CORPUSCULAR HGB CONC 32 g/dl (31.0-36.0); MEAN CORPUSCULAR VOLUME 94 fL (80-96); MONOCYTES # (AUTO) 0.1 /CMM (0.1-1.30); MONOCYTES % (AUTO) 2.5 % (2.0-12.0); NEUTROPHILS # (AUTO) 3.8 /CMM (1.8-8.9); NEUTROPHILS % (AUTO) 87.6 % (43.0-81.0); PLATELET COUNT (AUTO) 133 /CMM (150-450); WHITE BLOOD COUNT (AUTO) 4.3 K/uL (4.3-11.0)
[2019-01-28 05:03] LABS: CALCIUM, SERUM 8.9 mg/dL (8.5-10.1); CARBON DIOXIDE 39 mmol/L (21-32); CHLORIDE 101 mmol/L (98-107); CREATININE 0.9 mg/dL (0.6-1.3); GLUCOSE 311 mg/dL (74-106); PHOSPHORUS 4.2 mg/dL (2.5-4.9); POTASSIUM 5.5 mmol/L (3.5-5.1); SODIUM SERUM 143 mmol/L (136-145); UREA NITROGEN, BLOOD 11 mg/dL (7-18)
[2019-01-28 05:14] LABS: CHOLESTEROL 125 mg/dL (<200); HDL CHOLESTEROL 27 mg/dL (40-60); LDL 94 mg/dL (0-99); THYROID STIMULATING HORMONE 0.513 uIU/mL (0.358-3.74); TRIGLYCERIDES 68 mg/dL (30-150)
[2019-01-28 05:38] LABS: LYMPHOCYTES % (MANUAL) 9 % (16-48); MONOCYTES % (MANUAL) 1 % (0-11.0); NEUTROPHILS % (MANUAL) 90 (42-76)
--- NOTE | 2019-01-28 07:06 | NUR ---
PT REMAINS IN NO ACUTE DISTRESS IN BED. PT DID NOT HAVE ANY SIGNIFICANT CHANGE IN CONDITION DURING SHIFT. PT TOLERATED BIPAP SETTING WELL WITH O2 SAT @ 94%. ALL NEEDS MET, ALL ORDERS CARRIED OUT. WILL ENDORSE CARE TO AM RN FOR CONTINUITY OF CARE.
[2019-01-28] MEDS: PANTOPRAZOLE 40 MG TABLET.DR PO SCH (07:30)
--- NOTE | 2019-01-28 07:30 | NUR ---
ICU/RN: Pt received, no distress, tolerating BiPAP. A&Ox3 with periods of forgetfulness, Samoan speaking, pleasant. Denies CP or discomfort. Oriented to unit and POC. Non-productive wet cough noted. IV HL x2 flushed and patent. Call light within reach, HOB elevated. Will cont to monitor pt.
[2019-01-28 08:21] LABS: ABG BASE EXCESS 10.9 mmol/L; ABG PCO2 85.6 mmHg (35.0-45.0); ABG PH 7.314 (7.350-7.450); ABG PO2 85.5 mmHg (75.0-100.0); AaDO2 174.7 mmHg; COHb 1.7 % (0.5-1.5); MetHb 0.6 % (0.0-1.5); O2Hb 93.8 % (94.0-97.0); SITE, ABG Right Radial; VENT MODE, BG ST 20/5 50%
--- NOTE | 2019-01-28 08:30 | NUR ---
ICU/RN: Dr Camara at bedside, updated on pt status. ABG results discussed. Per MD, okay to place on BiPAP, target O2 sat 90%, titrate on NC and repeat blood gas. Noted and carried out.
[2019-01-28] MEDS: PAROXETINE HCL 20 MG TABLET PO SCH (09:00)
[2019-01-28] MEDS: LISINOPRIL (10MG) 10 MG TABLET PO SCH (09:00)
[2019-01-28] MEDS: ASPIRIN EC 81 MG TABLET.DR PO SCH (09:00)
[2019-01-28 11:44] LABS: ABG BASE EXCESS 11.5 mmol/L; ABG OXYGEN SATURATION 92.4 % (92.0-98.5); ABG PCO2 81.7 mmHg (35.0-45.0); ABG PH 7.336 (7.350-7.450); ABG PO2 66.1 mmHg (75.0-100.0); AaDO2 7.8 mmHg; COHb 1.3 % (0.5-1.5); MetHb 0.7 % (0.0-1.5); O2Hb 90.6 % (94.0-97.0); SITE, ABG Right Radial; VENT MODE, BG 2L NC
--- NOTE | 2019-01-28 12:30 | NUR ---
ICU/RN: Pt tolerating NC well, no distress. Eating lunch. No complaints noted.
[2019-01-28] MEDS: IPRATROPIUM NEB FS 0.5 MG/2.5 ML AMPUL.NEB NEB SCH ×2 (14:25→19:38)
[2019-01-28] MEDS: ALBUTEROL FS 2.5 MG/0.5 ML VIAL.NEB NEB SCH ×2 (14:25→19:38)
--- NOTE | 2019-01-28 14:30 | NUR ---
ICU/RN: Bed bath and hygienic care rendered to the pt. Some SOB noted with exertion. at bedside.
[2019-01-28] MEDS ORDERED: SODIUM POLYSTYRENE SULFONATE 15 G/60 ML BOTTLE PO ONE (16:00)
--- NOTE | 2019-01-28 16:32 | NUR ---
ICU/RN: Rx called to f/u delivery of Kayexalate dose. Awaiting arrival.
--- NOTE | 2019-01-28 19:45 | NUR ---
ICU/NAPRAPATH RECEIVED REPORT FROM DAY NURSE. SEE FLOWSHEET FOR ASSESSMENT AND ANY SKIN ISSUES WHICH ARE ADDRESSED, ALONG WITH THE INTERVENTIONS. PT WAS TURNED AND REPOSITIONED FOR COMFORT AND CARE. WILL CONTINUE TO MONITOR THIS PT. PT APPEARS TO BE COMFORTABLE NO ACUTE DISTRESS SEEN AT THIS TIME. CALL LIGHT WITHIN REACH
[2019-01-28] MEDS: SIMVASTATIN 20 MG TABLET PO SCH (21:08)
[2019-01-28] MEDS: ENOXAPARIN SODIUM 40 MG/0.4 ML DISP.SYRIN SQ SCH (21:08)
--- NOTE | 2019-01-28 22:00 | NUR ---
ICU/UI UX ENGINEER PT WAS PLACED ON BIPAP FROM N/C BY RT. WILL MONITOR THIS PT CLOSELY. CALL LIGHT WITHIN REACH. NO ACUTE DISTRESS SEEN AT THIS TIME.
[2019-01-29] VITALS (37 sets, daily range): BP systolic 90–150; BP diastolic 45–105
[2019-01-29] MEDS: ALBUTEROL FS 2.5 MG/0.5 ML VIAL.NEB NEB SCH ×4 (01:32→19:47)
[2019-01-29] MEDS: IPRATROPIUM NEB FS 0.5 MG/2.5 ML AMPUL.NEB NEB SCH ×4 (01:32→19:47)
[2019-01-29 04:50] LABS: BASOPHILS % (AUTO) 0.1 % (0.0-2.0); HEMATOCRIT 53 % (39-51); HEMOGLOBIN 17.3 g/dL (13.5-17.5); LYMPHOCYTES # (AUTO) 0.4 /CMM (0.8-4.8); LYMPHOCYTES % (AUTO) 4.1 % (20.0-44.0); MEAN CORPUSCULAR HGB CONC 33 g/dl (31.0-36.0); MEAN CORPUSCULAR VOLUME 93 fL (80-96); MONOCYTES # (AUTO) 0.3 /CMM (0.1-1.30); MONOCYTES % (AUTO) 3.5 % (2.0-12.0); NEUTROPHILS # (AUTO) 8.4 /CMM (1.8-8.9); NEUTROPHILS % (AUTO) 92.3 % (43.0-81.0); PLATELET COUNT (AUTO) 131 /CMM (150-450); RED BLOOD CELL COUNT(AUTO) 5.68 MIL/uL (4.5-6.0); WHITE BLOOD COUNT (AUTO) 9.1 K/uL (4.3-11.0)
--- NOTE | 2019-01-29 04:50 | NUR ---
ICU/BARREL STRAIGHTENER CRITICAL LAB OF HIGH GLUCOSE OF 352. PT IS CURRENTLY GETTING SOLU-MEDRAL IV Q 6 HRS. CALL PLACED TO MD TO COVER THIS DUE TO INCREASED SUGARS OVER A PERIOD OF TIME.
[2019-01-29 05:09] LABS: CALCIUM, SERUM 8.7 mg/dL (8.5-10.1); CARBON DIOXIDE 38 mmol/L (21-32); CHLORIDE 100 mmol/L (98-107); CREATININE 0.9 mg/dL (0.6-1.3); MAGNESIUM 2.2 mg/dL (1.8-2.4); PHOSPHORUS 3.6 mg/dL (2.5-4.9); POTASSIUM 4.9 mmol/L (3.5-5.1); SODIUM SERUM 139 mmol/L (136-145); UREA NITROGEN, BLOOD 19 mg/dL (7-18)
[2019-01-29 05:26] LABS: GLUCOSE 352 mg/dL (74-106)
--- NOTE | 2019-01-29 05:30 | NUR ---
ICU/LEAD SHAREPOINT DEVELOPER GAS PUMPING STATION HELPER MD CALL BACK DR TEJEDA, ORDERED MODERATE SCALE WITH AC/HS ACCU-CHECKS. ORDERED PLACED IN COMPUTER
[2019-01-29] MEDS: methylPREDNISolone SOD SUCC 40 MG/ML VIAL IV SCH ×3 (06:32→17:55)
[2019-01-29] MEDS ORDERED: DEXTROSE 50%-WATER 50 ML DISP.SYRIN IV PRN ×2 (07:00→12:00)
[2019-01-29] MEDS ORDERED: *INSULIN REGULAR(HUMULIN R)HUM 100 UNIT/ML VIAL SQ PRN (07:00)
[2019-01-29] MEDS ORDERED: BLOOD SUGAR DIAGNOSTIC 1 EACH STRIP VI SCH (07:30)
[2019-01-29] MEDS: PANTOPRAZOLE 40 MG TABLET.DR PO SCH (08:19)
[2019-01-29] MEDS: PAROXETINE HCL 20 MG TABLET PO SCH (08:19)
[2019-01-29] MEDS: ASPIRIN EC 81 MG TABLET.DR PO SCH (08:19)
[2019-01-29] MEDS: LISINOPRIL (10MG) 10 MG TABLET PO SCH (08:19)
[2019-01-29] MEDS: INSULIN REGULAR, HUMAN 100 UNIT/ML 3 ML VIAL SQ PRN ×2 (08:21→11:40)
--- NOTE | 2019-01-29 10:00 | NUR ---
ICU/RN: Dr Camara at bedside; pt condition dw family extensively.
--- NOTE | 2019-01-29 11:30 | NUR ---
ICU/RN TAKEN OFF BIPARNOLDO PT. REFUSED,PUT BACK ON N/C AT 5LPM. Addendum: 01/30/19 at 0139 by TDOD DOWNS RN [id number] INSTEAD OF ABOVE TIME
[2019-01-29] MEDS ORDERED: *INSULIN ASPART NOVOLOG 100 UNIT/ML CARTRIDGE SQ PRN (12:00)
--- NOTE | 2019-01-29 12:00 | NUR ---
ICU/RN: Dr Hart at bedside; updated on critical blood glucose 486, was given 15 units insulin per sliding scale. Per MD switch to aggressive SS. Condition dw family at bedside.
[2019-01-29] MEDS: BLOOD SUGAR DIAGNOSTIC 1 EACH STRIP IN SCH ×3 (12:18→22:18)
[2019-01-29 15:40] LABS: ABG BASE EXCESS 11.2 mmol/L; ABG OXYGEN SATURATION 88.9 % (92.0-98.5); ABG PCO2 70.8 mmHg (35.0-45.0); ABG PH 7.375 (7.350-7.450); ABG PO2 56.6 mmHg (75.0-100.0); COHb 1.1 % (0.5-1.5); MetHb 0.4 % (0.0-1.5); O2Hb 87.6 % (94.0-97.0); SITE, ABG Right Radial; VENT MODE, BG NASAL CANNULA
--- NOTE | 2019-01-29 17:00 | NUR ---
ICU/RN: Pt and refuse bed bath. Pt states "Im ok for now."
[2019-01-29] MEDS: INSULIN ASPART/LISPRO 100 UNIT/ML CARTRIDGE SQ PRN ×2 (17:57→22:17)
--- NOTE | 2019-01-29 19:15 | NUR ---
ICU/RN: Pt remains comfortable in bed, no distress, breathing even and unlabored. Awaiting delivery of Nicotine patch. Care endorsed to PM RN for DARRYL.
[2019-01-29] MEDS: NICOTINE PATCH (7MG) 7 MG PATCH.TD24 TD SCH (19:27)
--- NOTE | 2019-01-29 19:30 | NUR ---
ICU/RN RECEIVED PT AWAKE ALERT RESPONDS APPROPRIATELY TO QUESTIONS ASKED,FOLLOWS COMMANDS,CONFUSED AT TIMES RE-ORIENTED TO TIME AND SURROUNDINGS.KEEPS REMOVING 02.
[2019-01-29] MEDS: ENOXAPARIN SODIUM 40 MG/0.4 ML DISP.SYRIN SQ SCH (20:33)
--- NOTE | 2019-01-29 21:45 | NUR ---
ICU/RN PLACED ON BIPAP BY RT PER PT'S REQUEST,FIO2 50%,TV600,RATE OF 12,SAT.96%
[2019-01-29] MEDS: SIMVASTATIN 20 MG TABLET PO SCH (22:18)
--- NOTE | 2019-01-29 23:30 | NUR ---
ICU/RN BIPAP DC'D PT REFUSED,PUT BACK ON N/C AT 5LPM.
[2019-01-30] VITALS (29 sets, daily range): BP systolic 80–147; BP diastolic 45–95
--- NOTE | 2019-01-30 | NUR ---
ICU/RN .PT KEEPS TAKING OFF O2,PULLED PULSE OXIMETRY AND LEADS,REPLACED,KICKED ALL COVERS ON THE FLOOR AND EXPOSING SELF,COVERED AND EXPLAINED TO PT RE-IMPORTANCE OF 02,MONITOR.
[2019-01-30] MEDS: methylPREDNISolone SOD SUCC 40 MG/ML VIAL IV SCH ×2 (01:14→06:12)
[2019-01-30] MEDS: ALBUTEROL FS 2.5 MG/0.5 ML VIAL.NEB NEB SCH ×4 (01:53→19:27)
[2019-01-30] MEDS: IPRATROPIUM NEB FS 0.5 MG/2.5 ML AMPUL.NEB NEB SCH ×4 (01:53→19:27)
--- NOTE | 2019-01-30 02:00 | NUR ---
ICU/RN SITTING ON SIDE OF BED W/MONITOR,PULE OXIMETRY,GOWN ON THE FLOOR,OFF 02.KANG Urbano AT BEDSIDE TO TRANSLATE RE IMPORTANCE OF ABOVE.VOIDED THEN WENT TO SLEEP AFTER FEW MIN.
--- NOTE | 2019-01-30 04:00 | NUR ---
ICU/RN PT NON-COMPLIANT,KEEPS REMOVING 02 AND DESATURATES LOW 83%.FURTHER INSTRUCTIONS GIVEN
[2019-01-30 05:33] LABS: HEMATOCRIT 53 % (39-51); HEMOGLOBIN 17.4 g/dL (13.5-17.5); LYMPHOCYTES # (AUTO) 0.3 /CMM (0.8-4.8); LYMPHOCYTES % (AUTO) 3.3 % (20.0-44.0); MEAN CORPUSCULAR HGB CONC 33 g/dl (31.0-36.0); MEAN CORPUSCULAR VOLUME 93 fL (80-96); MONOCYTES # (AUTO) 0.3 /CMM (0.1-1.30); MONOCYTES % (AUTO) 3.3 % (2.0-12.0); NEUTROPHILS # (AUTO) 9.7 /CMM (1.8-8.9); NEUTROPHILS % (AUTO) 93.4 % (43.0-81.0); PLATELET COUNT (AUTO) 122 /CMM (150-450); RED BLOOD CELL COUNT(AUTO) 5.69 MIL/uL (4.5-6.0); WHITE BLOOD COUNT (AUTO) 10.3 K/uL (4.3-11.0)
[2019-01-30 05:40] LABS: CALCIUM, SERUM 8.4 mg/dL (8.5-10.1); CARBON DIOXIDE 39 mmol/L (21-32); CHLORIDE 101 mmol/L (98-107); CREATININE 0.9 mg/dL (0.6-1.3); GLUCOSE 250 mg/dL (74-106); MAGNESIUM 2.1 mg/dL (1.8-2.4); PHOSPHORUS 3.7 mg/dL (2.5-4.9); POTASSIUM 4.1 mmol/L (3.5-5.1); SODIUM SERUM 140 mmol/L (136-145); UREA NITROGEN, BLOOD 19 mg/dL (7-18)
--- NOTE | 2019-01-30 07:00 | NUR ---
ICU/RN REPORT AND CARE OF PT GIVEN TO DEE Osborne
--- NOTE | 2019-01-30 07:12 | NUR ---
RN INITIAL NOTES: Rec'd pt asleep on bed, not in any distress, easily arousable, A/O x 3, denies any pain/discomfort at this time. On NC at 3lpm, sating at 88%. On telemonitor, SR. Has RFA G20, SL. Pt is independent w/ bed mobility. Per report, pt was refusing to place on BiPap. Safety precaution in place w/ bed in lowest & locked pos. Call light w/in reach. Will cont to monitor & attend pt needs.
[2019-01-30] MEDS: BLOOD SUGAR DIAGNOSTIC 1 EACH STRIP IN SCH ×4 (07:32→21:57)
[2019-01-30] MEDS: PANTOPRAZOLE 40 MG TABLET.DR PO SCH (07:35)
[2019-01-30] MEDS: INSULIN ASPART/LISPRO 100 UNIT/ML CARTRIDGE SQ PRN ×4 (07:36→21:59)
[2019-01-30] MEDS: ASPIRIN EC 81 MG TABLET.DR PO SCH (08:30)
[2019-01-30] MEDS: LISINOPRIL (10MG) 10 MG TABLET PO SCH (08:31)
[2019-01-30] MEDS: NICOTINE PATCH (7MG) 7 MG PATCH.TD24 TD SCH (08:31)
[2019-01-30] MEDS: PAROXETINE HCL 20 MG TABLET PO SCH (08:31)
--- NOTE | 2019-01-30 09:00 | NUR ---
Pt seen & examined by Dr. Camara & updated about pt condition. Health teaching was given regarding the importance of BIPAP. Per pt he can only tolerates max of 2 hours. Per MD to advise the pt that he can do 2 hours on BIPAP then have a break/ rest after then put it back again. This was discussed w/ the pt w/ verbalization of understanding.
--- NOTE | 2019-01-30 11:16 | NUR ---
Pt seen & examined by naye Collado to transfer out of ICU to [facility]. Pt made aware.
--- NOTE | 2019-01-30 18:42 | NUR ---
RN CLOSING NOTES: No significant changes noted w/in shift. Pt tolerated NC at 3lpm, sating at 94%. On telemonitor, remains SR. RFA G20, SL kept patent & intact w/ no s/sx of infection/infiltration noted. Safety precaution kept in place at all times w/ bed in lowest & locked pos. Call light w/in reach. Will endorse to PM RN for DARRYL. Awaiting [facility] bed for transfer.
[2019-01-30] MEDS: ENOXAPARIN SODIUM 40 MG/0.4 ML DISP.SYRIN SQ SCH (21:09)
--- NOTE | 2019-01-30 21:25 | NUR ---
FREIGHT BRAKEMAN PT WAS TRANSFERRED TO [facility] ROOM 116-2. PT IS AWAKE, ALERT, ORIENTED. VSS, AFEBRILE, SCOPE-SR. NOCTURNAL BIPAP. REPORT GIVEN TO [facility] MELVIN RN.
--- NOTE | 2019-01-30 21:26 | NUR ---
RN [facility] NOTE RECEIVED PATIENT FROM ICU VIA BED, AOX3, SPEECH CLEAR, ABLE TO MAKE NEEDS KNOWN, DENIES PAIN, NO RESPIRATORY OR CARDIAC DISTRESS NOTED, ON TELE SR, BIPAP, SKIN KEPT CLEAN AND DRY, RFA #20G PATENT FLUSHING WELL, SL, SITE IS CLEAN DRY AND DRESSING INTACT, SAFETY MAINTAINED AT ALL TIMES, CALL LIGHT WITHIN REACH, BED IN LOW LOCKED POSITION, WILL CONTINUE TO MONITOR FOR ANY CHANGES IN CONDITION.
[2019-01-30] MEDS: SIMVASTATIN 20 MG TABLET PO SCH (21:58)
[2019-01-31] VITALS (7 sets, daily range): BP systolic 122–144; BP diastolic 72–85
[2019-01-31] MEDS: ALBUTEROL FS 2.5 MG/0.5 ML VIAL.NEB NEB SCH ×4 (01:30→19:28)
[2019-01-31] MEDS: IPRATROPIUM NEB FS 0.5 MG/2.5 ML AMPUL.NEB NEB SCH ×4 (01:30→19:28)
[2019-01-31 07:04] LABS: HEMATOCRIT 56 % (39-51); HEMOGLOBIN 18.3 g/dL (13.5-17.5); LYMPHOCYTES # (AUTO) 1.3 /CMM (0.8-4.8); LYMPHOCYTES % (AUTO) 13.4 % (20.0-44.0); MEAN CORPUSCULAR HGB CONC 33 g/dl (31.0-36.0); MEAN CORPUSCULAR VOLUME 92 fL (80-96); MONOCYTES # (AUTO) 0.8 /CMM (0.1-1.30); MONOCYTES % (AUTO) 7.5 % (2.0-12.0); NEUTROPHILS # (AUTO) 7.9 /CMM (1.8-8.9); NEUTROPHILS % (AUTO) 79.1 % (43.0-81.0); PLATELET COUNT (AUTO) 116 /CMM (150-450); RED BLOOD CELL COUNT(AUTO) 6.04 MIL/uL (4.5-6.0)
[2019-01-31 07:28] LABS: CALCIUM, SERUM 8.5 mg/dL (8.5-10.1); CARBON DIOXIDE 39 mmol/L (21-32); CHLORIDE 98 mmol/L (98-107); CREATININE 0.8 mg/dL (0.6-1.3); GLUCOSE 138 mg/dL (74-106); MAGNESIUM 2.2 mg/dL (1.8-2.4); PHOSPHORUS 3.2 mg/dL (2.5-4.9); SODIUM SERUM 140 mmol/L (136-145); UREA NITROGEN, BLOOD 17 mg/dL (7-18)
--- NOTE | 2019-01-31 07:30 | NUR ---
RN [facility] OPENING NOTES RECEIVED REPORT FROM INTRANET SPECIALIST RN. PT IS SLEEPING AND ON BIPAP. ON TELE MONITOR PT IS SR. PT HAS A 20 GAUGE IN R AC. PT HAS A URINAL AT BEDSIDE. BED IS LOCKED AND IN LOWEST POSITION. CALL LIGHT WITHIN REACH. NO OBVIOUS SIGNS OF RESPIRATORY DISTRESS NOTED. WILL CONTINUE TO MONITOR.
[2019-01-31] MEDS: BLOOD SUGAR DIAGNOSTIC 1 EACH STRIP IN SCH ×4 (07:49→21:14)
[2019-01-31] MEDS: PANTOPRAZOLE 40 MG TABLET.DR PO SCH (08:17)
[2019-01-31] MEDS: methylPREDNISolone SOD SUCC 40 MG/ML VIAL IV SCH (08:17)
[2019-01-31] MEDS: NICOTINE PATCH (7MG) 7 MG PATCH.TD24 TD SCH (08:18)
[2019-01-31] MEDS: LISINOPRIL (10MG) 10 MG TABLET PO SCH (08:19)
[2019-01-31] MEDS: PAROXETINE HCL 20 MG TABLET PO SCH (08:19)
[2019-01-31] MEDS: ASPIRIN EC 81 MG TABLET.DR PO SCH (08:19)
[2019-01-31] MEDS: INSULIN ASPART/LISPRO 100 UNIT/ML CARTRIDGE SQ PRN ×3 (08:23→18:09)
--- NOTE | 2019-01-31 10:26 | NUR ---
RN NOTE: DR. HOOD CAME BY AND SAID THAT THE PATIENT CAN BE POSSIBLY DISCHARGE TOMORROW AND NEEDED A PT EVALUATION. MD ORDERD PT EVAL, NOTED AND CARRIED OUT. PATIENT MADE AWARE.
--- NOTE | 2019-01-31 18:53 | NUR ---
RN CLOSING NOTES GAVE REPORT TO SECURITY SYSTEM TECHNICIAN RN. PT IS RESTING IN BED. ON TELE MONITOR PT IS SR. PT HAS A 20 GAUGE IN R AC. PT HAS A URINAL AT BEDSIDE. BED IS LOCKED AND IN LOWEST POSITION. CALL LIGHT WITHIN REACH. NO OBVIOUS SIGNS OF RESPIRATORY DISTRESS NOTED. WILL ENDORSE CONTINUITY OF CARE TO SECURITY SYSTEM TECHNICIAN RN. .
[2019-01-31] MEDS: SIMVASTATIN 20 MG TABLET PO SCH (21:14)
[2019-01-31] MEDS: ENOXAPARIN SODIUM 40 MG/0.4 ML DISP.SYRIN SQ SCH (21:15)
[2019-02-01] VITALS: BP 137/78
[2019-02-01] MEDS: IPRATROPIUM NEB FS 0.5 MG/2.5 ML AMPUL.NEB NEB SCH ×2 (01:30→07:51)
[2019-02-01] MEDS: ALBUTEROL FS 2.5 MG/0.5 ML VIAL.NEB NEB SCH ×2 (01:30→07:50)
[2019-02-01 04:00] VITALS: BP 145/86
[2019-02-01 08:00] VITALS: BP 143/72
--- NOTE | 2019-02-01 08:00 | NUR ---
[facility] RN NOTE PATIENT IN BED RESTING COMFORTABLY WITH RT DOING BREATHING TX T THI TIME , ALERT ORIENTEDX3 , MARY RN PATIENT INTAKE COORDINATOR AT BEDSIDE , RT FA HL INTACT BLOOD SUGAR CHECKED 148 MG\ DL ,BED IN LOWEST AND LOCKED POSITION ,ON TELE MONITOR ST 120, WILL CONT TO MONITOR CLOSELY
[2019-02-01] MEDS: methylPREDNISolone SOD SUCC 40 MG/ML VIAL IV SCH (08:38)
[2019-02-01] MEDS: PAROXETINE HCL 20 MG TABLET PO SCH (08:39)
[2019-02-01] MEDS: NICOTINE PATCH (7MG) 7 MG PATCH.TD24 TD SCH (08:39)
[2019-02-01] MEDS: ASPIRIN EC 81 MG TABLET.DR PO SCH (08:39)
[2019-02-01 08:40] VITALS: BP 143/72
[2019-02-01] MEDS: LISINOPRIL (10MG) 10 MG TABLET PO SCH (08:40)
[2019-02-01] MEDS: PANTOPRAZOLE 40 MG TABLET.DR PO SCH (08:40)
[2019-02-01] MEDS: INSULIN ASPART/LISPRO 100 UNIT/ML CARTRIDGE SQ PRN ×2 (08:51→12:51)
[2019-02-01] MEDS: BLOOD SUGAR DIAGNOSTIC 1 EACH STRIP IN SCH ×2 (09:00→12:32)
--- NOTE | 2019-02-01 10:31 | NUR ---
ms rn note\ per jose alexander power distributor patient ill be discharge to acute rehab, case checker madeline notifyed ,will f\u
--- NOTE | 2019-02-01 13:05 | NUR ---
MS RN NOTE PER PIANO MECHANIC APPRENTICE KAMARI OK TO TRANSFER TO SNF ,BIPAP WILL BE ARRANGED
--- NOTE | 2019-02-01 13:05 | NUR ---
MS RN NOTE CALLED TO [facility] SPOKE WITH KATHRYN HOLLINS ,REPORT GIVEN ALSO SHE STATED THAT BIPAP NOT ARRANGED ,SPOKE WITH KAMARI SEO MANAGER STATED STILL OK TO TRANSFER BIPAP WILL BE ARRANGED ,WILL BUBBA Mario DONE ORDERED Addendum: 02/01/19 at 1536 by BARRINGTON RESTREPO RN WRONG ENTRY
--- NOTE | 2019-02-01 13:41 | NUR ---
MS RN NOTE UNABLE TO FIND WATCH FOR PATIENT, CALLED TO ICU ,SPOKE WITH MARGARITA CHARGE NURSE BUT STILL UNABLE TO FIND ,PATIENT WAS TRANSFERRED TO [facility] ON 01/30 19 AT 2100, CHECK WITH LOST AND FIND DEPARTMENT AND SPOKE WITH [facility] DEPARTMENT STILL CANT FIND , CHARGE NURSE YUMIKO NOTIFIED , PX GIVEN TO DAUGHTER , AMBULANCE AT BEDSIDE REPORT GIVEN TELE REMOVED HL REMOVED
--- NOTE | 2019-02-01 14:10 | NUR ---
MS RN NOTE AMBULANCE ARRIVED, REPORT GIVEN, TAKEN TO [facility] WITH STABLE CONDITION HR 107 AT THIS TIME, ON 3L NC DAUGHTER AT BEDSIDE , INFORMED DAUGHTER THAT WILL CONT TO F\U FOR WATCHES Addendum: 02/01/19 at 1539 by BARRINGTON RESTREPO RN SUNDAY FELIX DIE MAKER TRIM NOTIFIED ABOUT LOST WATCH
== END 2019-02-01 14:08 | DRG 189 ==
LOC: ER 12:45 → ICU 16:54 → TELE-TD 01-30 21:19 → MEDSG1 02-01 10:05
PROVIDERS: ATTEND Nurse Practitioner Acute Care
PROC: 5A09457 Assistance with Respiratory Ventilation, 24-96 Consecutive Hours, Continuous Positive Airway Pressure (ICD-10-PCS; principal; 2019-01-27)
DX: J96.21 Acute and chronic respiratory failure with hypoxia (principal); J44.1 Chronic obstructive pulmonary disease with (acute) exacerbation; E66.2 Morbid (severe) obesity with alveolar hypoventilation; I50.32 Chronic diastolic (congestive) heart failure; J96.22 Acute and chronic respiratory failure with hypercapnia; J96.02 Acute respiratory failure with hypercapnia; I11.0 Hypertensive heart disease with heart failure; I25.10 Atherosclerotic heart disease of native coronary artery without angina pectoris; D75.1 Secondary polycythemia; F17.210 Nicotine dependence, cigarettes, uncomplicated; E11.9 Type 2 diabetes mellitus without complications; Z68.31 Body mass index [BMI] 31.0-31.9, adult; Z79.82 Long term (current) use of aspirin; Z91.19 Patient's noncompliance with other medical treatment and regimen; E78.5 Hyperlipidemia, unspecified
CPT/HCPCS: 36415; 36600; 71045-TC; 73564-TC; 80048-TC; 80061-TC; 80076-TC; 82803-TC; 82962-TC; 83735-TC; 83880; 84100-TC; 84443-TC; 84484-TC; 85025-TC; 87081-TC; 93307-TC; 94799-TC; 99082-TC; G0378; J1650; J1815; J2920; J2930

== ENCOUNTER 2019-05-05 13:52 | Outpatient (CLI) | payer MEDICARE, MEDICAID ==
[2019-05-05 14:08] VITALS: BP 140/86
== END 2019-05-05 23:59 | disposition home or self-care (01) ==
LOC: MSC 13:52
PROVIDERS: ATTEND Nurse Practitioner Acute Care
DX: R07.9 Chest pain, unspecified (principal); W18.39XD Other fall on same level, subsequent encounter; I10 Essential (primary) hypertension; F17.200 Nicotine dependence, unspecified, uncomplicated; E78.5 Hyperlipidemia, unspecified; F32.9 Major depressive disorder, single episode, unspecified; F41.9 Anxiety disorder, unspecified; J44.9 Chronic obstructive pulmonary disease, unspecified; J42 Unspecified chronic bronchitis; G47.33 Obstructive sleep apnea (adult) (pediatric); E66.9 Obesity, unspecified
CPT/HCPCS: 71046; G0463

== ENCOUNTER 2019-06-16 15:05 | Outpatient (CLI) | payer MEDICARE, MEDICAID ==
[2019-06-16 15:50] VITALS: BP 131/79
== END 2019-06-16 23:59 | disposition home or self-care (01) ==
LOC: MSC 15:05
PROVIDERS: ATTEND Internal Medicine
DX: J44.9 Chronic obstructive pulmonary disease, unspecified (principal); Z99.81 Dependence on supplemental oxygen; F17.200 Nicotine dependence, unspecified, uncomplicated; I10 Essential (primary) hypertension; E78.5 Hyperlipidemia, unspecified; F41.8 Other specified anxiety disorders; G47.33 Obstructive sleep apnea (adult) (pediatric); Z99.11 Dependence on respirator [ventilator] status; E66.9 Obesity, unspecified

== ENCOUNTER 2019-06-20 08:49 | Outpatient (CLI) | payer MEDICARE, MEDICAID ==
[2019-06-20 10:39] LABS: BASOPHILS % (AUTO) 0.5 % (0.0-2.0); EOSINOPHILS % (AUTO) 1.1 % (0.0-6.0); HEMATOCRIT 57 % (39-51); HEMOGLOBIN 18.7 g/dL (13.5-17.5); LYMPHOCYTES % (AUTO) 15.7 % (20.0-44.0); MEAN CORPUSCULAR HGB CONC 33 g/dl (31.0-36.0); MEAN CORPUSCULAR VOLUME 97 fL (80-96); MONOCYTES # (AUTO) 0.6 /CMM (0.1-1.30); MONOCYTES % (AUTO) 9.5 % (2.0-12.0); NEUTROPHILS # (AUTO) 4.5 /CMM (1.8-8.9); NEUTROPHILS % (AUTO) 73.2 % (43.0-81.0); PLATELET COUNT (AUTO) 155 /CMM (150-450); RED BLOOD CELL COUNT(AUTO) 5.92 MIL/uL (4.5-6.0); WHITE BLOOD COUNT (AUTO) 6.2 K/uL (4.3-11.0)
[2019-06-20 10:53] LABS: ALANINE AMINOTRANSFERASE 28 U/L (12-78); ALBUMIN 3.2 g/dL (3.4-5.0); ALKALINE PHOSPHATASE 86 U/L (46-116); ASPARTATE AMINOTRANSFERASE 27 U/L (15-37); BILIRUBIN,DIRECT 0.1 mg/dL (0.0-0.2); BILIRUBIN,TOTAL 1.1 mg/dL (0.2-1.0); CALCIUM, SERUM 8.6 mg/dL (8.5-10.1); CARBON DIOXIDE 37 mmol/L (21-32); CHLORIDE 98 mmol/L (98-107); GLUCOSE 161 mg/dL (74-106); POTASSIUM 4.5 mmol/L (3.5-5.1); SODIUM SERUM 139 mmol/L (136-145); TOTAL PROTEIN, SERUM 6.8 g/dL (6.4-8.2); UREA NITROGEN, BLOOD 9 mg/dL (7-18)
[2019-06-20 11:05] LABS: CHOLESTEROL 140 mg/dL (<200); HDL CHOLESTEROL 32 mg/dL (40-60); LDL 94 mg/dL (0-99); TRIGLYCERIDES 140 mg/dL (30-150)
== END 2019-06-20 23:59 | disposition home or self-care (01) ==
LOC: LAB 08:49
PROVIDERS: ATTEND Internal Medicine
DX: Z00.00 Encounter for general adult medical examination without abnormal findings (principal); E11.9 Type 2 diabetes mellitus without complications; E78.00 Pure hypercholesterolemia, unspecified
CPT/HCPCS: 36415; 80048-TC; 80061-TC; 80076-TC; 85025-TC